=== PATIENT | female | born 1950 | race Hispanic/Latino ===

== ENCOUNTER → 2025-02-27 | Outpatient (CLI) | payer BC, MEDICARE ==
--- NOTE | 2025-02-27 16:33 | HMCIMG ---
DEXA BONE DENSITY SURVEY HISTORY: Menopause COMPARISON: None FINDINGS: Bone densitometry study was performed. Bone mineral density of the lumbar spine is 0.833 gram per centimeter square which corresponds to a T score of -1.9 and a Z score of 0.5. Bone mineral density of the left hip is 0.679 grams per centimeter square which corresponds to a T score of -2.1 and a Z score of -0.3. IMPRESSION: 1. Osteopenia of the lumbar spine and left hip.
== END | disposition home or self-care (01) ==
LOC: RAH 14:00
PROVIDERS: ATTEND Internal Medicine
DX: Z13.820 Encounter for screening for osteoporosis (principal); N95.9 Unspecified menopausal and perimenopausal disorder; M85.89 Other specified disorders of bone density and structure, multiple sites
CPT/HCPCS: 77080